=== PATIENT | male | born 1985 | race Caucasian/White ===

== ENCOUNTER 2016-06-20 17:17 | Emergency (ER) | payer SELFPAY ==
[~2016-06-20] VITALS: Ht 175.3 cm; Wt 85.0 kg
[2016-06-20 17:23] VITALS: BP 167/102; PULSE 167; RESP 20; TEMP 98.7; O2SAT 96
[2016-06-20] MEDS ORDERED: SODIUM CHLOR 0.9% 1000 ML INJ 1,000 ML IV ONE (17:45)
--- NOTE | 2016-06-20 18:20 | RADRPT ---
EXAM DATE/TIME: 06/20/2016 17:54 [facility] COMPARISON: CT BRAIN W/O CONTRAST, March 09, 2016, 21:51. INDICATIONS : Found unresponsive, contusion to right forehead. RADIATION DOSE: 50.92 CTDIvol (mGy) MEDICAL HISTORY : Stroke. Cardiovascular disease Diabetes mellitus type 2. SURGICAL HISTORY : None. ENCOUNTER: Initial ACUITY: 1 day PAIN SCALE: Non-responsive LOCATION: Right frontal TECHNIQUE: Multiple contiguous axial images were obtained of the head. Using automated exposure control and adj ustment of the mA and/or kV according to patient size, radiation dose was kept as low as reasonably a chievable to obtain optimal diagnostic quality images. FINDINGS: CEREBRUM: The ventricles are normal for age. No evidence of midline shift, mass lesion, hemorrhage or acute in farction. No extra-axial fluid collections are seen. POSTERIOR FOSSA: The cerebellum and brainstem are intact. The 4th ventricle is midline. The cerebellopontine angle i s unremarkable. EXTRACRANIAL: There is opacification of the left-sided mastoid air cells and middle ear cavity. SKULL: The calvaria is intact. No evidence of skull fracture. CONCLUSION: No acute intracranial findings. Left-sided otitis media and mastoiditis. Beny Dukes MD on June 20, 2016 at 18:15 Board Certified Radiologist. This report was verified electronically.
--- NOTE | 2016-06-20 18:21 | RADRPT ---
EXAM DATE/TIME: 06/20/2016 17:54 [facility] COMPARISON: CT CERVICAL SPINE W/O CONTRAST W 3D RECON, September 11, 2012, 19:10. INDICATIONS : Found unresponsive with facial trauma. RADIATION DOSE: 41.00 CTDIvol (mGy) MEDICAL HISTORY : Stroke. Cardiovascular disease Diabetes mellitus type 2. SURGICAL HISTORY : None. ENCOUNTER: Initial ACUITY: 1 day PAIN SCALE: Non-responsive LOCATION: neck TECHNIQUE: Volumetric scanning of the cervical spine was performed. Multiplanar reconstructions i n the sagittal, coronal and oblique axial planes were performed. Using automated exposure control a nd adjustment of the mA and/or kV according to patient size, radiation dose was kept as low as reason ably achievable to obtain optimal diagnostic quality images. FINDINGS: The alignment is normal. There is no evidence of cervical spine fracture. No bony canal or foraminal stenosis is identified. There is no evidence of paraspinal hematoma. CONCLUSION: No acute bony injury in the cervical spine. Beny Dukes MD on June 20, 2016 at 18:18 Board Certified Radiologist. This report was verified electronically.
[2016-06-20 18:43] LABS: AUTOMATED NEUTROPHIL # 2.4 TH/MM3 (1.8-7.7); BASOPHIL % 0.8 % (0.0-2.0); EOSINOPHIL % 0.7 % (0.0-4.0); HEMATOCRIT 40.5 % (39.0-51.0); HEMO FLAGS DIFF FINAL; LYMPH % 40.3 % (9.0-44.0); LYMPHOCYTE # 2.2 TH/MM3 (1.0-4.8); MEAN CELL VOLUME 90.5 FL (80.0-100.0); MEAN CORPUSCULAR HEMOGLOBIN 31.2 PG (27.0-34.0); MEAN CORPUSCULAR HGB CONC 34.4 % (32.0-36.0); MONO % 13.4 % (0.0-8.0); NEUT % 44.8 % (16.0-70.0); PLATELET COUNT 181 TH/MM3 (150-450); RED BLOOD COUNT 4.48 MIL/MM3 (4.50-5.90); RED CELL DISTRIBUTION WIDTH 13.3 % (11.6-17.2); WHITE BLOOD COUNT 5.4 TH/MM3 (4.0-11.0)
[2016-06-20 19:04] LABS: ANION GAP 10 MEQ/L (5-15); AST (GOT) 137 U/L (15-37); BICARBONATE 26.1 MEQ/L (21.0-32.0); BLOOD UREA NITROGEN 9 MG/DL (7-18); CHLORIDE 109 MEQ/L (98-107); GLOMERULAR FILTRATION RATE 75 ML/MIN (>89); POTASSIUM 3.9 MEQ/L (3.5-5.1); SODIUM (NA) 145 MEQ/L (136-145)
[2016-06-20 19:08] LABS: ALKALINE PHOSPHATASE 67 U/L (45-117); ALT (GPT) 150 U/L (12-78); TOTAL BILIRUBIN ADULT 0.3 MG/DL (0.2-1.0)
--- NOTE | 2016-06-21 11:40 | EKG ---
Date Performed: 06/20/2016 Time Performed: 17:42:55 PTAGE: 31 years EKG: SINUS TACHYCARDIA WITH SHORT NV INTERVAL, POSSIBLE ATRIAL FLUTTER ABNORMAL RHYTHM ECG PREVIOUS TRACING : 06/05/2015 18.44 DOCTOR: Emile Erazo Interpretating Date/Time 06/21/2016 11:40:26
--- NOTE | 2016-06-23 00:51 | PD ---
HPI Chief Complaint: Alcohol/Drug Intoxication Time Seen by Provider: 17:30 Travel History International Travel<30 days: No Contact w/Intl Traveler<30days: No History of Present Illness HPI Patient is a 31-year-old male brought in by EMS after presumed overdose. Per EMS patient was originally GCS of 3, however on arrival he is GCS of 15. Patient admits to using K2, crack, alcohol. He has no complaints at this time. [place] He denies any pain currently. 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) Endocrine: No Gastrointestinal Disorders: No GERD: Yes Genitourinary: No Hiatal Hernia: No Immune Disorder: No Implanted Vascular Access Dvce: No Kidney Stones: No Musculoskeletal: No Neurologic: No Psychiatric: No Reproductive: No Migraines: No Renal Failure: No Seizures: No Sickle Cell Disease: No Sleep Apnea: No Thyroid Disease: No Ulcer: No Tetanus Vaccination: < 5 Years Influenza Vaccination: No ?: Not Past Surgical History Abdominal Surgery: No Arteriovenous Shunt: No Cardiac Surgery: No Ear Surgery: Yes (TUBES REMOVED) Endocrine Surgery: No Eye Surgery: No Genitourinary Surgery: No Gynecologic Surgery: No Insulin Pump: No Joint Replacement: No Oral Surgery: Yes ( REPAIRED) Pacemaker: No Thoracic Surgery: No Tonsillectomy: Yes Other Surgery: Yes Social History Alcohol Use: Yes Tobacco Use: Yes ("A LOT") Substance Use: Yes (K2) Allergies-Medications (Allergen,Severity, Reaction): Coded Allergies: Propoxyphene (Verified Allergy, Severe, 03/09/16) Codeine (Verified Allergy, Intermediate, RASH, 03/09/16) Darvocet-N 100 (Verified Allergy, Intermediate, RASH, 03/09/16) Reported Meds & Prescriptions Reported Meds & Active Scripts Active No Active Prescriptions or Reported Medications Review of Systems General / Constitutional: No: Fever, Chills Eyes: No: Diploplia, Blurred Vision HENT: No: Headaches Cardiovascular: No: Chest Pain or Discomfort Respiratory: No: Shortness of Breath Gastrointestinal: No: Nausea, Vomiting, Abdominal Pain Genitourinary: No: Dysuria Neurologic: No: Weakness, Dizziness Physical Exam Narrative GENERAL: Awake and alert in no acute distress. SKIN: Warm and dry. Abrasion to the forehead, no active bleeding. HEAD: Atraumatic. Normocephalic. EYES: Pupils equal and round. No scleral icterus. Extraocular movements intact. ENT: Mucous membranes pink and moist. NECK: Trachea midline. No JVD. No cervical spine tenderness. CARDIOVASCULAR: Regular rate and rhythm. No murmur appreciated. RESPIRATORY: No accessory muscle use. Clear to auscultation. Breath sounds equal bilaterally. GASTROINTESTINAL: Abdomen soft, non-tender, nondistended. MUSCULOSKELETAL: No obvious deformities. No clubbing. No cyanosis. No edema. NEUROLOGICAL: Awake and alert. No obvious cranial nerve deficits. Motor grossly within normal limits. Normal speech. PSYCHIATRIC: Appropriate mood and affect; insight and judgment normal. Data Data Last Documented VS Vital Signs Date Time Temp Pulse Resp B/P Pulse Ox O2 Delivery O2 Flow Rate FiO2 06/20/16 17:32 Nasal Cannula 2 06/20/16 17:23 98.7 167 20 167/102 96 Orders Complete Blood Count With Diff (06/20/16 17:31) Comprehensive Metabolic Panel (06/20/16 17:31) Sodium Chlor 0.9% 1000 Ml Inj (Ns 1000 M (06/20/16 17:45) Ct Brain W/O Iv Contrast(Rout) (06/20/16 ) Ct Cerv Spine W/O Contrast (06/20/16 ) Electrocardiogram (06/20/16 ) Labs Laboratory Tests Test 06/20/16 18:30 White Blood Count 5.4 TH/MM3 Red Blood Count 4.48 MIL/MM3 Hemoglobin 13.9 GM/DL Hematocrit 40.5 % Mean Corpuscular Volume 90.5 FL Mean Corpuscular Hemoglobin 31.2 PG Mean Corpuscular Hemoglobin 34.4 % Concent Red Cell Distribution Width 13.3 % Platelet Count 181 TH/MM3 Mean Platelet Volume 9.0 FL Neutrophils (%) (Auto) 44.8 % Lymphocytes (%) (Auto) 40.3 % Monocytes (%) (Auto) 13.4 % Eosinophils (%) (Auto) 0.7 % Basophils (%) (Auto) 0.8 % Neutrophils # (Auto) 2.4 TH/MM3 Lymphocytes # (Auto) 2.2 TH/MM3 Monocytes # (Auto) 0.7 TH/MM3 Eosinophils # (Auto) 0.0 TH/MM3 Basophils # (Auto) 0.0 TH/MM3 CBC Comment DIFF FINAL Differential Comment Sodium Level 145 MEQ/L Potassium Level 3.9 MEQ/L Chloride Level 109 MEQ/L Carbon Dioxide Level 26.1 MEQ/L Anion Gap 10 MEQ/L Blood Urea Nitrogen 9 MG/DL Creatinine 1.14 MG/DL Estimat Glomerular Filtration 75 ML/MIN Rate Random Glucose 111 MG/DL Calcium Level 8.7 MG/DL Total Bilirubin 0.3 MG/DL Aspartate Amino Transf 137 U/L (AST/SGOT) Alanine Aminotransferase 150 U/L (ALT/SGPT) Alkaline Phosphatase 67 U/L Total Protein 7.7 GM/DL Albumin 4.0 GM/DL [facility] Medical Decision Making Medical Screen Exam Complete: Yes Emergency Medical Condition: Yes Differential Diagnosis Drug intoxication versus head trauma versus alcohol intoxication versus ICH versus C-spine fracture Narrative Course Patient is a 31-year-old male brought in by EMS after presumed overdose. Patient does admit to taking drugs and drinking alcohol tonight. Exam shows small abrasion to the head. CT head and cervical spine performed shows no acute abnormalities. Labs performed show an elevation in AST and ALTs. Patient informed of the results. Patient informed that he needs to stay in the emergency department until he is clinically sober and safe for discharge. Patient observed in the ED. However, he did get up and leave without telling the nurse or anyone else. Patient was seen walking out without stumbling. Diagnosis Primary Impression: Eloped Patient Instructions: General Instructions Departure Forms: Tests/Procedures Scripts No Active Prescriptions or Reported Meds Disposition: AGAINST MEDICAL ADVICE Condition: Stable Rebecca Guadalupe MD Jun 23, 2016 00:51
== END 2016-06-20 19:52 | disposition left against medical advice (07) ==
LOC: NEPE 17:17
DX: F10.129 Alcohol abuse with intoxication, unspecified (principal); F31.9 Bipolar disorder, unspecified; F41.9 Anxiety disorder, unspecified; K21.9 Gastro-esophageal reflux disease without esophagitis; R00.0 Tachycardia, unspecified
CPT/HCPCS: 70450; 72125; 80053; 85025; 93005; 99284; J7030

== ENCOUNTER 2017-05-31 14:37 | Emergency (ER) | payer SELFPAY ==
[~2017-05-31] VITALS: Ht 177.8 cm; Wt 75.0 kg
[2017-05-31 14:40] VITALS: BP 146/83; PULSE 105; RESP 16; TEMP 98.4; O2SAT 98
--- NOTE | 2017-05-31 15:21 | PD ---
HPI Chief Complaint: Laceration/Skin Injury Time Seen by Provider: 15:03 Travel History International Travel<30 days: No Contact w/Intl Traveler<30days: No Traveled to known affect area: No History of Present Illness HPI 32-year-old male presents with a laceration to the palmar aspect of his left hand. Patient states that he was repairing a chainsaw and cut his hand. Patient denies numbness or tingling. Patient has full range of motion of fingers and hands. Denies any other issues. Denies fevers, chills, excessive swelling or redness. Patient last tetanus vaccine was in 2012. Denies chronic medical issues or chronic medication use. 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) Endocrine: No Gastrointestinal Disorders: No GERD: Yes Genitourinary: No Hiatal Hernia: No Immune Disorder: No Implanted Vascular Access Dvce: No Kidney Stones: No Musculoskeletal: No Neurologic: No Psychiatric: No Reproductive: No Migraines: No Renal Failure: No Seizures: No Sickle Cell Disease: No Sleep Apnea: No Thyroid Disease: No Ulcer: No Past Surgical History Abdominal Surgery: No Arteriovenous Shunt: No Cardiac Surgery: No Ear Surgery: Yes (TUBES REMOVED) Endocrine Surgery: No Eye Surgery: No Genitourinary Surgery: No Gynecologic Surgery: No Insulin Pump: No Joint Replacement: No Oral Surgery: Yes (JAW SX) Pacemaker: No Thoracic Surgery: No Tonsillectomy: Yes Other Surgery: Yes Social History Alcohol Use: No Tobacco Use: Yes ("A LOT") Substance Use: Yes (K2 PT DENIES) Allergies-Medications (Allergen,Severity, Reaction): Coded Allergies: propoxyphene (Unverified Allergy, Severe, 05/31/17) acetaminophen (Unverified Allergy, Intermediate, RASH, 05/31/17) codeine (Unverified Allergy, Intermediate, RASH, 05/31/17) Reported Meds & Prescriptions Reported Meds & Active Scripts Active Keflex (Cephalexin) 500 Mg Cap 500 Mg PO Q8H 7 Days Review of Systems Except as stated in HPI: all other systems reviewed are Neg Physical Exam Narrative GENERAL: Well-nourished, well-developed patient. SKIN: Focused skin assessment warm/dry. HEAD: Normocephalic. EYES: No scleral icterus. No injection or drainage. NECK: Supple, trachea midline. No JVD or lymphadenopathy. CARDIOVASCULAR: Regular rate and rhythm without murmurs, gallops, or rubs. RESPIRATORY: Breath sounds equal bilaterally. No accessory muscle use. Left hand palmar aspect- 1 cm V-shaped laceration without evidence of tendon or ligament involvement, neurovascularly intact, bleeding controlled, no edema or erythema. GASTROINTESTINAL: Abdomen soft, non-tender, nondistended. MUSCULOSKELETAL: No cyanosis, or edema. BACK: Nontender without obvious deformity. No CVA tenderness. Data Data Last Documented VS Vital Signs Date Time Temp Pulse Resp B/P (MAP) Pulse Ox O2 Delivery O2 Flow Rate FiO2 05/31/17 16:37 05/31/17 15:08 18 05/31/17 14:40 98.4 105 98 Room Air Orders Orders Lidocaine 1% Inj (50 Ml) (Xylocaine 1% I (05/31/17 15:30) Wound Care (05/31/17 16:10) Ed Discharge Order (05/31/17 16:12) MDM Medical Decision Making Medical Screen Exam Complete: Yes Emergency Medical Condition: Yes Differential Diagnosis Left hand laceration, avulsion, abrasion Narrative Course 32-year-old male presents with a laceration to the palmar aspect of his left hand. Patient states that he was repairing a chainsaw and cut his hand. Patient denies numbness or tingling. Patient has full range of motion of fingers and hands. Denies any other issues. Denies fevers, chills, excessive swelling or redness. Patient last tetanus vaccine was in 2012. Denies chronic medical issues or chronic medication use. Vital signs stable Laceration repair performed. Advised on wound care. Keflex for antibiotic prophylaxis. Advised to avoid immersion in water for 24 hours. Reiterated proper wound care. Advised patient to follow up with his primary care physician within 2-3 days. Suture removal in 7-10 days. Advised that if he has signs of infection return to emergency department. Diagnosis Primary Impression: Laceration of left hand Qualified Codes: S61.412A - Laceration without foreign body of left hand, initial encounter Referrals: Primary Care Physician Additional Instructions: Followed at primary care within 2-3 days. Ensure your wound stays clean and dry for at least 24 hours. After 24 hours she may shower. Suture removal in 7-10 days. Return to emergency department if you do not have a primary care will remove sutures. If the site develops redness, swelling or pus return to emergency department Scripts Cephalexin (Keflex) 500 Mg Cap 500 MG PO Q8H for Infection for 7 Days, #21 CAP 0 Refills Prov: Diandra Elizondo DO 05/31/17 Disposition: 01 DISCHARGE HOME Condition: Stable Verónica Nugent May 31, 2017 15:21
[2017-05-31] MEDS ORDERED: LIDOCAINE HCL 1% 50 ML VIAL INFIL ONE (15:30)
[2017-05-31] MEDS ORDERED: CEPH-460 PO (16:12)
== END 2017-05-31 16:37 | disposition home or self-care (01) ==
LOC: NEPD 14:37
DX: S61.412A Laceration without foreign body of left hand, initial encounter (principal); W29.3XXA Contact with powered garden and outdoor hand tools and machinery, initial encounter; Y93.89 Activity, other specified
CPT/HCPCS: 12001

== ENCOUNTER 2017-07-01 09:08 | Observation (INO) | payer SELFPAY ==
[~2017-07-01] VITALS: Ht 177.8 cm; Wt 75.0 kg
[~2017-07-01 09:08] MED LIST: CEPH-460 PO
[2017-07-01 09:14] VITALS: BP 135/75; PULSE 87; RESP 18; TEMP 97.7; O2SAT 100
--- NOTE | 2017-07-01 09:21 | PD ---
Physical Exam Time Seen by Provider: 09:14 Narrative 32yo M c/o issues with real bad posterior headaches for the past few weeks. Headache is posterior. This morning while in the shower the whole left side of his body feels went numb and it feels like pins and needles and this onset 30 minutes ago. He started drooling out of his mouth also. Denies slurred speech. No facial droop noted in triage. Speech is clear. +nausea w/o vomiting. Has been sober from alcohol for over 60 days. Denies illicit drug use. Patient seen in triage. Taken to medical bed. See next providers note for final patient disposition. MDM Supervised Visit with JODY: Susannah Paul Jul 01, 2017 09:21
[2017-07-01] MEDS ORDERED: PROCHLORPERAZINE INJ 10 MG/2 ML VIAL IV PUSH ONE (09:30)
[2017-07-01] MEDS ORDERED: diphenhydrAMINE HCL 50 MG/ML VIAL IV PUSH ONE (09:30)
[2017-07-01] MEDS ORDERED: SODIUM CHLORIDE 0.9% FLUSH 10 ML FLUSH IV FLUSH PRN ×2 (09:30→13:00)
--- NOTE | 2017-07-01 09:34 | PD ---
HPI Chief Complaint: Headache Time Seen by Provider: 09:24 Travel History International Travel<30 days: No Contact w/Intl Traveler<30days: No Traveled to known affect area: No History of Present Illness HPI Patient is a 32-year-old male presents emergency part for evaluation of headaches for the past 2 weeks. Patient became concerned today when he took a shower and suddenly the entire left side of his body went numb and he started drooling and wasn't unable to control himself. He got out of the shower approximately 20 minutes later his symptoms resolved. He did not notice any facial drooping. Patient is a significant history of alcohol abuse and has not had a drink and over 2 months and is staying at a shelter house. He states he doing everything he can put his life back together. He does have a history of smoking, states his headache has been bifrontal. This tried some Tylenol ibuprofen at home without any relief. 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) Endocrine: No Gastrointestinal Disorders: No GERD: Yes Genitourinary: No Headaches: No Hiatal Hernia: No Heparin Induced Thrombocytopen: No Hypertension: No Immune Disorder: No Implanted Vascular Access Dvce: No Kidney Stones: No Musculoskeletal: No Neurologic: No Psychiatric: No Reproductive: No Migraines: No Renal Failure: No Seizures: No Sickle Cell Disease: No Sleep Apnea: No Thyroid Disease: No Ulcer: No Tetanus Vaccination: < 5 Years Past Surgical History Surgical History: No Previous Surgery Abdominal Surgery: No Arteriovenous Shunt: No Cardiac Surgery: No Ear Surgery: Yes (TUBES REMOVED) Endocrine Surgery: No Eye Surgery: No Genitourinary Surgery: No Gynecologic Surgery: No Insulin Pump: No Joint Replacement: No Oral Surgery: Yes (JAW SX) Pacemaker: No Thoracic Surgery: No Tonsillectomy: Yes Other Surgery: Yes Social History Alcohol Use: Yes Tobacco Use: Yes ("A LOT") Substance Use: Yes (K2 PT DENIES) Allergies-Medications (Allergen,Severity, Reaction): Coded Allergies: propoxyphene (Unverified Allergy, Severe, 07/01/17) acetaminophen (Unverified Allergy, Intermediate, RASH, 07/01/17) codeine (Unverified Allergy, Intermediate, RASH, 07/01/17) Reported Meds & Prescriptions Reported Meds & Active Scripts Active No Active Prescriptions or Reported Medications Review of Systems Except as stated in HPI: all other systems reviewed are Neg Physical Exam Narrative GENERAL: WD/WN in nad SKIN: Warm and dry. HEAD: Atraumatic. Normocephalic. EYES: Pupils equal and round. No scleral icterus. No injection or drainage. ENT: No nasal bleeding or discharge. Mucous membranes pink and moist. NECK: Trachea midline. No JVD. CARDIOVASCULAR: Regular rate and rhythm. RESPIRATORY: No accessory muscle use. Clear to auscultation. Breath sounds equal bilaterally. GASTROINTESTINAL: Abdomen soft, non-tender, nondistended. Hepatic and splenic margins not palpable. MUSCULOSKELETAL: Extremities without clubbing, cyanosis, or edema. No obvious deformities. NEUROLOGICAL: Awake and alert. No obvious cranial nerve deficits. Motor grossly within normal limits. Five out of 5 muscle strength in the arms and legs. Normal speech. PSYCHIATRIC: Appropriate mood and affect; insight and judgment normal. Data Data Last Documented VS Vital Signs Date Time Temp Pulse Resp B/P (MAP) Pulse Ox O2 Delivery O2 Flow Rate FiO2 07/01/17 09:45 78 18 129/77 (94) 100 Room Air 07/01/17 09:14 97.7 Orders Orders Electrocardiogram (07/01/17 09:29) Complete Blood Count With Diff (07/01/17 09:29) Comprehensive Metabolic Panel (07/01/17 09:29) Prothrombin Time / Inr (Pt) (07/01/17 09:29) Act Partial Throm Time (Ptt) (07/01/17 09:29) Blood Glucose (07/01/17 09:29) Ecg Monitoring (07/01/17 09:29) Iv Access Insert/Monitor (07/01/17 09:29) Oximetry (07/01/17 09:29) Sodium Chloride 0.9% Flush (Ns Flush) (07/01/17 09:30) Drug Screen, Random Urine (07/01/17 09:29) Alcohol (Ethanol) (07/01/17 09:29) Diphenhydramine Inj (Benadryl Inj) (07/01/17 09:30) Prochlorperazine Inj (Compazine Inj) (07/01/17 09:30) Ct Brain W/O Iv Contrast(Rout) (07/01/17 ) Admit Order (Ed Use Only) (07/01/17 ) Vital Signs (Adult) RITESH.Q4H (07/01/17 12:26) Activity Bed Rest (07/01/17 12:26) Code Status (07/01/17 12:26) Labs Laboratory Tests Test 07/01/17 09:40 07/01/17 10:02 White Blood Count 6.2 TH/MM3 Red Blood Count 4.27 MIL/MM3 Hemoglobin 13.8 GM/DL Hematocrit 39.6 % Mean Corpuscular Volume 92.9 FL Mean Corpuscular Hemoglobin 32.4 PG Mean Corpuscular Hemoglobin Concent 34.9 % Red Cell Distribution Width 13.8 % Platelet Count 250 TH/MM3 Mean Platelet Volume 8.2 FL Neutrophils (%) (Auto) 47.6 % Lymphocytes (%) (Auto) 35.5 % Monocytes (%) (Auto) 15.3 % Eosinophils (%) (Auto) 1.3 % Basophils (%) (Auto) 0.3 % Neutrophils # (Auto) 3.0 TH/MM3 Lymphocytes # (Auto) 2.2 TH/MM3 Monocytes # (Auto) 1.0 TH/MM3 Eosinophils # (Auto) 0.1 TH/MM3 Basophils # (Auto) 0.0 TH/MM3 CBC Comment DIFF FINAL Differential Comment Prothrombin Time 10.4 SEC Prothromb Time International Ratio 1.0 RATIO Activated Partial Thromboplast Time 25.2 SEC Blood Urea Nitrogen 13 MG/DL Creatinine 1.06 MG/DL Random Glucose 106 MG/DL Total Protein 7.9 GM/DL Albumin 4.2 GM/DL Calcium Level 9.0 MG/DL Alkaline Phosphatase 79 U/L Aspartate Amino Transf (AST/SGOT) 198 U/L Alanine Aminotransferase (ALT/SGPT) 480 U/L Total Bilirubin 0.4 MG/DL Sodium Level 137 MEQ/L Potassium Level 4.1 MEQ/L Chloride Level 105 MEQ/L Carbon Dioxide Level 24.7 MEQ/L Anion Gap 7 MEQ/L Estimat Glomerular Filtration Rate 81 ML/MIN Ethyl Alcohol Level LESS THAN 3 MG/DL Urine Opiates Screen NEG Urine Barbiturates Screen NEG Urine Amphetamines Screen NEG Urine Benzodiazepines Screen NEG Urine Cocaine Screen NEG Urine Cannabinoids Screen NEG MDM Medical Decision Making Medical Screen Exam Complete: Yes Emergency Medical Condition: Yes Differential Diagnosis TIA, complex migraine, head injury unlikely, substance abuse. Narrative Course Patient roomed emergency department, neurologically nonfocal at this time, basic labs are reassuring and CT head negative. Patient was discussed with Dr. Keith who recommends the patient should still be observed despite his relative paucity of risk factors and consideration of MRI and further workup. Patient was discussed with Dr. Lopez ultimately is agreeable for observation status. Recommendation discussed with patient and he is agreeable. Diagnosis Primary Impression: TIA (transient ischemic attack) Qualified Codes: G45.9 - Transient cerebral ischemic attack, unspecified Scripts No Active Prescriptions or Reported Meds Disposition: 01 DISCHARGE HOME Condition: Stable Dandy Rodriguez MD Jul 01, 2017 09:34
[2017-07-01 09:41] VITALS: O2SAT 99
[2017-07-01 09:45] VITALS: BP 129/77; PULSE 78; RESP 18; O2SAT 100
[2017-07-01 09:49] LABS: BASOPHIL % 0.3 % (0.0-2.0); EOSINOPHIL # 0.1 TH/MM3 (0-0.4); EOSINOPHIL % 1.3 % (0.0-4.0); HEMATOCRIT 39.6 % (39.0-51.0); HEMOGLOBIN 13.8 GM/DL (13.0-17.0); LYMPH % 35.5 % (9.0-44.0); LYMPHOCYTE # 2.2 TH/MM3 (1.0-4.8); MEAN CELL VOLUME 92.9 FL (80.0-100.0); MEAN CORPUSCULAR HEMOGLOBIN 32.4 PG (27.0-34.0); MEAN CORPUSCULAR HGB CONC 34.9 % (32.0-36.0); MEAN PLATELET VOLUME 8.2 FL (7.0-11.0); MONO % 15.3 % (0.0-8.0); NEUT % 47.6 % (16.0-70.0); PLATELET COUNT 250 TH/MM3 (150-450); RED BLOOD COUNT 4.27 MIL/MM3 (4.50-5.90); RED CELL DISTRIBUTION WIDTH 13.8 % (11.6-17.2); WHITE BLOOD COUNT 6.2 TH/MM3 (4.0-11.0)
[2017-07-01 09:56] LABS: PROTHROMBIN TIME - PATIENT 10.4 SEC (9.8-11.6)
[2017-07-01 10:01] LABS: ALBUMIN 4.2 GM/DL (3.4-5.0); AST (GOT) 198 U/L (15-37); BICARBONATE 24.7 MEQ/L (21.0-32.0); BLOOD UREA NITROGEN 13 MG/DL (7-18); CHLORIDE 105 MEQ/L (98-107); CREATININE 1.06 MG/DL (0.60-1.30); GLOMERULAR FILTRATION RATE 81 ML/MIN (>89); GLUCOSE,RANDOM 106 MG/DL (74-106); SODIUM (NA) 137 MEQ/L (136-145)
[2017-07-01 10:02] LABS: ALT (GPT) 480 U/L (12-78)
[2017-07-01 10:04] LABS: ALKALINE PHOSPHATASE 79 U/L (45-117); TOTAL BILIRUBIN ADULT 0.4 MG/DL (0.2-1.0); TOTAL PROTEIN 7.9 GM/DL (6.4-8.2)
--- NOTE | 2017-07-01 10:35 | RADRPT ---
EXAM DATE/TIME: 07/01/2017 10:07 [facility] COMPARISON: CT BRAIN W/O CONTRAST, June 20, 2016, 17:54. INDICATIONS : Headache and new left sided numbness. RADIATION DOSE: 56.37 CTDIvol (mGy) MEDICAL HISTORY : unobtainable. SURGICAL HISTORY : unobtainable ENCOUNTER: Initial ACUITY: 2 weeks PAIN SCALE: 0/10 LOCATION: occipital TECHNIQUE: Multiple contiguous axial images were obtained of the head. Using automated exposure control and adj ustment of the mA and/or kV according to patient size, radiation dose was kept as low as reasonably a chievable to obtain optimal diagnostic quality images. DICOM format image data is available electro nically for review and comparison. FINDINGS: CEREBRUM: The ventricles are normal for age. No evidence of midline shift, mass lesion, hemorrhage or acute in farction. No extra-axial fluid collections are seen. POSTERIOR FOSSA: The cerebellum and brainstem are intact. The 4th ventricle is midline. The cerebellopontine angle i s unremarkable. EXTRACRANIAL: Opacification of left mastoid air cells and middle ear again seen. SKULL: The calvaria is intact. No evidence of skull fracture. CONCLUSION: No acute intracranial findings. John Mcgraw MD on July 01, 2017 at 10:29 Board Certified Radiologist. This report was verified electronically.
[2017-07-01] MEDS ORDERED: SODIUM CHLOR 0.9% 1000 ML INJ 1,000 ML IV SCH (12:33)
[2017-07-01 12:47] VITALS: O2SAT 97
--- NOTE | 2017-07-01 12:57 | HHI.HP ---
[facility] No Primary Care Physician Admission Diagnosis Possible TIA Diagnoses: Chief Complaint: Left Sided numbness Travel History International Travel<30 Days: No Contact w/Intl Traveler <30 Da: No Traveled to Known Affected Are: No History of Present Illness This is a 32-year-old male with a history of anxiety, GERD, tobacco and alcohol abuse and chronic headaches. States he has chronic posterior headache but has been worse for the past 2 weeks. He describes a sharp pressure occipital headache scale of 9 out of 10 lasting throughout the day associated with nausea. No fever, chills, neck pain, vomiting and skin rash. This morning while he was in the shower he developed sudden onset of left-sided numbness described as tingling sensation associated with drooling. Symptoms lasted for 30 minutes abated when he arrived in the emergency department. Headache also improved after receiving IV Compazine and Benadryl. All other systems reviewed negative. Patient has been recommended to be hospitalized for stroke workup by emergency room physician after discussion with neurology. Review of Systems Except as stated in HPI: all other systems reviewed are Neg Past Family Social History Past Medical History As previously mentioned Past Surgical History Left knee surgery, ear tubes removal, jaw surgery and tonsillectomy Reported Medications none Allergies: Coded Allergies: propoxyphene (Unverified Allergy, Severe, 07/01/17) acetaminophen (Unverified Allergy, Intermediate, RASH, 07/01/17) codeine (Unverified Allergy, Intermediate, RASH, 07/01/17) Family History Heart dse Social History /2 PPD. Off ETOH for 60 days. Admits to Physical Exam Vital Signs Vital Signs Date Time Temp Pulse Resp B/P (MAP) Pulse Ox O2 Delivery O2 Flow Rate FiO2 07/01/17 09:45 78 18 129/77 (94) 100 Room Air 07/01/17 09:41 99 07/01/17 09:14 97.7 87 18 135/75 (95) 100 Physical Exam GENERAL: This is a well-nourished, well-developed patient, in no apparent distress. SKIN: No rashes, ecchymoses or lesions. Cool and dry. HEAD: Atraumatic. Normocephalic. No temporal or scalp tenderness. EYES: Pupils equal round and reactive. Extraocular motions intact. No scleral icterus. No injection or drainage. ENT: Nose without bleeding, purulent drainage or septal hematoma. Throat without erythema, tonsillar hypertrophy or exudate. Uvula midline. Airway patent. NECK: Trachea midline. No JVD or lymphadenopathy. Supple, nontender, no meningeal signs. CARDIOVASCULAR: Regular rate and rhythm without murmurs, gallops, or rubs. RESPIRATORY: Clear to auscultation. Breath sounds equal bilaterally. No wheezes , rales, or rhonchi. GASTROINTESTINAL: Abdomen soft, non-tender, nondistended. No guarding. MUSCULOSKELETAL: Extremities without clubbing, cyanosis, or edema. No joint tenderness, effusion, or edema noted. No calf tenderness. Negative Homans sign bilaterally. NEUROLOGICAL: Awake and alert. Cranial nerves II through XII intact. Motor and sensory grossly within normal limits. Five out of 5 muscle strength in all muscle groups. Normal speech. Laboratory Laboratory Tests Test 07/01/17 09:40 07/01/17 10:02 White Blood Count 6.2 Red Blood Count 4.27 Hemoglobin 13.8 Hematocrit 39.6 Mean Corpuscular Volume 92.9 Mean Corpuscular Hemoglobin 32.4 Mean Corpuscular Hemoglobin Concent 34.9 Red Cell Distribution Width 13.8 Platelet Count 250 Mean Platelet Volume 8.2 Neutrophils (%) (Auto) 47.6 Lymphocytes (%) (Auto) 35.5 Monocytes (%) (Auto) 15.3 Eosinophils (%) (Auto) 1.3 Basophils (%) (Auto) 0.3 Neutrophils # (Auto) 3.0 Lymphocytes # (Auto) 2.2 Monocytes # (Auto) 1.0 Eosinophils # (Auto) 0.1 Basophils # (Auto) 0.0 CBC Comment DIFF FINAL Differential Comment Prothrombin Time 10.4 Prothromb Time International Ratio 1.0 Activated Partial Thromboplast Time 25.2 Blood Urea Nitrogen 13 Creatinine 1.06 Random Glucose 106 Total Protein 7.9 Albumin 4.2 Calcium Level 9.0 Alkaline Phosphatase 79 Aspartate Amino Transf (AST/SGOT) 198 Alanine Aminotransferase (ALT/SGPT) 480 Total Bilirubin 0.4 Sodium Level 137 Potassium Level 4.1 Chloride Level 105 Carbon Dioxide Level 24.7 Anion Gap 7 Estimat Glomerular Filtration Rate 81 Ethyl Alcohol Level LESS THAN 3 Urine Opiates Screen NEG Urine Barbiturates Screen NEG Urine Amphetamines Screen NEG Urine Benzodiazepines Screen NEG Urine Cocaine Screen NEG Urine Cannabinoids Screen NEG Result Diagram: 07/01/17 0940 07/01/17 0940 Imaging Last Impressions Head CT 07/01/17 0000 Signed Impressions: Service Date/Time: Saturday, July 01, 2017 10:07 - CONCLUSION: No acute intracranial findings. MD Daryn Bosch VTE Risk Assessment [place] VTE Risk Assessment: No/Low Risk (score <= 1) Caprini Risk Assessment Model Point Value = 1 Point Value = 2 Point Value = 3 Point Value = 5 Age 41-60 Minor surgery BMI > 25 kg/m2 Swollen legs Varicose veins or History of unexplained or recurrent spontaneous Oral contraceptives or hormone replacement Sepsis (< 1 month) Serious lung disease, including pneumonia (< 1 month) Abnormal pulmonary function Acute myocardial infarction Congestive heart failure (< 1 month) History of inflammatory bowel disease Medical patient at bed rest Age 61-74 Arthroscopic surgery Major open surgery (> 45 min) Laparoscopic surgery (> 45 min) Malignancy Confined to bed (> 72 hours) Immobilizing plaster cast Central venous access Age >= 75 History of VTE Family history of VTE Factor V Leiden Prothrombin 20294M Lupus anticoagulant Anticardiolipin antibodies Elevated serum homocysteine Heparin-induced thrombocytopenia Other congenital or acquired thrombophilia Stroke (< 1 month) Elective arthroplasty Hip, pelvis, or leg fracture Acute spinal cord injury (< 1 month) Prophylaxis Regimen Total Risk Factor Score Risk Level Prophylaxis Regimen 0-1 Low Early ambulation 2 Moderate Order ONE of the following: *Sequential Compression Device (SCD) *Heparin 5000 units SQ BID 3-4 Higher Order ONE of the following medications: *Heparin 5000 units SQ TID *Enoxaparin/Lovenox 40 mg SQ daily (WT < 150 kg, CrCl > 30 mL/min) *Enoxaparin/Lovenox 30 mg SQ daily (WT < 150 kg, CrCl > 10-29 mL/min) *Enoxaparin/Lovenox 30 mg SQ BID (WT < 150 kg, CrCl > 30 mL/min) AND/OR *Sequential Compression Device (SCD) 5 or more Highest Order ONE of the following medications: *Heparin 5000 units SQ TID (Preferred with Epidurals) *Enoxaparin/Lovenox 40 mg SQ daily (WT < 150 kg, CrCl > 30 mL/min) *Enoxaparin/Lovenox 30 mg SQ daily (WT < 150 kg, CrCl > 10-29 mL/min) *Enoxaparin/Lovenox 30 mg SQ BID (WT < 150 kg, CrCl > 30 mL/min) AND *Sequential Compression Device (SCD) Assessment and Plan Problem List: (1) TIA (transient ischemic attack) ICD Code: G45.9 - Transient cerebral ischemic attack, unspecified Status: Acute Assessment and Plan This is a 32-year-old male presents with worsening headache and acute onset of left-sided numbness and drooling Possible TIA. Stat ASA and stroke work up with ECHO and CUS. Neuro checks and monitor on tele. Unable to start statin 2/2 elevated LFTs. EKG tracing interpreted by me with sinus rhythm with no acute ST-T changes. Tobacco cessation Acute on chronic MEDINA. HCT negative. Likely tension MEDINA. Trial fiorinal Transaminitis(ALT>AST). Off ETOH for 2 mos. Check Hep profile and liver US. Avoid hepatotoxins Chronic medical conditions of anxiety and GERD. Start Pepcid. Antireflux mechanisms discussed with patient. Low risk for DVT Discussed Condition With pt and ER staff Problem Qualifiers (1) TIA (transient ischemic attack): Qualified Codes: G45.9 - Transient cerebral ischemic attack, unspecified Joseluis Lopez MD Jul 01, 2017 12:57
[2017-07-01] MEDS ORDERED: DEXTROSE 50% IN WATER 50 ML VIAL(D50) IV PUSH PRN (13:00)
[2017-07-01] MEDS ORDERED: MAGNESIUM HYDROXIDE SUSP 30 ML CUP PO PRN (13:00)
[2017-07-01] MEDS ORDERED: GLUCAGON 1 MG/ML VIAL OTHER PRN (13:00)
[2017-07-01] MEDS ORDERED: SENNOSIDES 8.6 MG TAB PO PRN (13:00)
[2017-07-01] MEDS ORDERED: NALOXONE HCL 0.4 MG/ML AMP IV PUSH PRN (13:00)
[2017-07-01] MEDS ORDERED: ASPIRIN 325 MG TAB PO SCH (13:00)
[2017-07-01] MEDS ORDERED: ONDANSETRON HCL 4 MG/2 ML VIAL IVP PRN (13:00)
[2017-07-01] MEDS ORDERED: BISACODYL 10 MG SUPP RECTAL PRN (13:00)
[2017-07-01] MEDS ORDERED: LACTULOSE SYRUP 20 GM/30 ML CUP PO PRN (13:00)
[2017-07-01] MEDS ORDERED: ASPIRIN 325 MG/CAFFEINE 40 MG/BUTALBITAL 50 MG CAP PO PRN (13:00)
[2017-07-01] MEDS ORDERED: ALUMINUM/MAGNESIUM/SIMETH 30 ML CUP PO PRN (13:15)
[2017-07-01] MEDS ORDERED: CALCIUM CARBONATE 500 MG CHEWABLE TAB CHEW PRN (13:15)
[2017-07-01] MEDS ORDERED: INSULIN ASPART SUPPLEMENTAL SCALE SQ SCH (17:00)
[2017-07-01] MEDS ORDERED: FAMOTIDINE 20 MG TAB PO SCH (21:00)
[2017-07-01] MEDS ORDERED: SODIUM CHLORIDE 0.9% FLUSH 10 ML FLUSH IV FLUSH SCH (21:00)
[2017-07-01] MEDS ORDERED: DOCUSATE SODIUM 50 MG/SENNA 8.6 MG TAB PO SCH (21:00)
[2017-07-02 08:23] LABS: HEMOGLOBIN A1C 5.2 % (4.3-6.0)
--- NOTE | 2017-07-02 16:19 | EKG ---
Date Performed: 07/01/2017 Time Performed: 09:40:07 PTAGE: 32 years EKG: Sinus rhythm NORMAL ECG Compared to PREVIOUS TRACING , sinus rhythm has replaced SVT. PREVIOUS TRACIN06/20/2016 17.42 DOCTOR: Oren Greene Interpretating Date/Time 07/02/2017 16:18:02
== END 2017-07-01 13:34 | disposition left against medical advice (07) ==
LOC: NEPD 09:08 → NEDA 12:29
PROVIDERS: ADMIT Internal Medicine; ATTEND Internal Medicine
DX: G45.9 Transient cerebral ischemic attack, unspecified (principal); R51 Headache; R74.0 Nonspecific elevation of levels of transaminase and lactic acid dehydrogenase [LDH]; F41.9 Anxiety disorder, unspecified; K21.9 Gastro-esophageal reflux disease without esophagitis; H91.92 Unspecified hearing loss, left ear; Z72.0 Tobacco use
CPT/HCPCS: 70450; 80053; 80307; 83036; 85025; 85610; 85730; 93005; 96374; 96375; 99285; G0378; J0780; J1200